=== PATIENT | female | born 1960 | race Caucasian/White ===

== ENCOUNTER 2017-09-15 18:34 | Emergency (ER) | payer SELFPAY ==
[2017-09-15] MEDS ORDERED: Sodium Chloride 0.9% 10 ML Syringe FLUSH PRN ×2 (19:05→19:36)
[2017-09-15] MEDS ORDERED: HYDROmorphone 0.5 MG/0.5 ML SYRINGE IVPUSH ONE (19:05)
[2017-09-15] MEDS ORDERED: LORazepam 2 MG/ML SDV IVPUSH ONE (19:05)
[2017-09-15] MEDS ORDERED: Iopamidol 612 MG/ML 100 ML Bottle IVPUSH ONE (19:36)
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
--- NOTE | 2017-09-17 12:26 | CT ---
CT facial bones Technique: Multiple axial sections through the facial bones were obtained. Reconstructed coronal and sagittal images were reviewed. Comparison: No previous study. Findings: Minimal mucosal thickening seen within the ethmoid sinuses and left maxillary sinus. Nasal bone fracture is seen which is slightly comminuted and mildly displaced. Fracture also noted within the anterior nasal septum. No additional facial bone fracture is seen. Impression: 1. Mildly comminuted and displaced fracture within the nasal bone. 2. Fracture within the anterior nasal septum. 3. Sinus findings which are incidental. Diagnostic code #3 I agree with preliminary report from [facility], finalized at 09/15/17, 9:20 PM Central Time
--- NOTE | 2017-09-17 12:26 | CT ---
CT chest Technique: Multiple axial sections through the chest were obtained. Intravenous contrast was utilized. Comparison: No prior chest imaging. Findings: Mediastinum and hilar regions appear within normal limits. No pericardial thickening is seen. Small portion of the visualized upper abdominal structures are within normal limits. Peripheral cysts are seen within both upper lungs. Incidental azygos lobe is seen. Lungs show no acute parenchymal densities. No pleural effusions or pneumothorax is seen. Bone window settings were reviewed which show no discrete acute rib fracture. Three old appearing left-sided rib fractures are incidentally noted. Lateral reconstruction views show minimal degenerative change within the spine without acute compression deformity. Reconstructed sagittal images of the sternum appear within normal limits. Impression: 1. Three old left-sided rib fractures. 2. Nothing acute is seen on CT study of the chest. Diagnostic code #2 I agree with preliminary report from [facility], finalized at 09/15/17, 9:16 PM Central Time
--- NOTE | 2017-09-17 12:26 | CT ---
Head CT Technique: Multiple axial sections through the brain were obtained. Intravenous contrast was not utilized. Findings: Ventricles along with basal cisterns and sulci over the convexities are within normal limits for the patient's age. No abnormal parenchymal densities are seen. No evidence of intracranial hemorrhage. No midline shift or mass effect is seen. No discrete calvarial abnormality is seen. Mucosal thickening is noted within the ethmoid sinuses. No acute calvarial abnormality is seen. Impression: 1. Mild sinus findings which are felt to be incidental. 2. No acute intracranial abnormality is identified. Diagnostic code #2 I agree with preliminary report from [facility], finalized at 09/15/17, 9:21 PM Central Time
== END 2017-09-15 20:58 | disposition home or self-care (01) ==
LOC: JD.ED 18:34
DX: S02.2XXA Fracture of nasal bones, initial encounter for closed fracture (principal); Z88.5 Allergy status to narcotic agent; Y04.8XXA Assault by other bodily force, initial encounter
CPT/HCPCS: 36415; 70450; 70486; 71260; 80053; 80306; 81003; 83690; 85025; 96374; 96375; 99284; G0480; J1170; J2060; J7050; Q9967

== ENCOUNTER 2020-03-07 04:05 | Emergency (ER) | payer SELFPAY ==
[2020-03-07] MEDS ORDERED: valACYclovir 1,000 MG Tab PO ONE (04:36)
--- NOTE | 2020-03-07 04:42 | EDM.PDOC ---
ED HPI GENERAL MEDICAL PROBLEM - General Chief Complaint: Skin Complaint Stated Complaint: right side rash on top of ear possible shingles Time Seen by Provider: 03/07/20 04:28 Source of Information: Reports: Patient History Limitations: Reports: No Limitations - History of Present Illness INITIAL COMMENTS - FREE TEXT/NARRATIVE: The patient presents with a rash to her right ear. This started a couple days ago. She has a history of shingles and she feels this is shingles again. She says this has happened in other areas when she gets stressed. Her daughter last year and this was the first [place] without her. She also has a rash in her scalp. It itches and cates. She has no fever, chills, cough, congestion, runny nose, chest pain, shortness of breath, abdominal pain, nausea or vomiting. 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: Musculoskeletal History: Reports: Other (See Below) Other Musculoskeletal History: carpal Tunnel Psychiatric History: Reports: Anxiety - Infectious Disease History Infectious Disease History: Reports: Shingles - Past Surgical History Female Surgical History: Reports: Tubal Ligation Social & Family History - Family History Family Medical History: No Pertinent Family History - Tobacco Use Tobacco Use Status *Q: Current Some Day Tobacco User Years of Tobacco use: 50 Packs/Tins Daily: 0.4 Used Tobacco, but Quit: No - Caffeine Use Caffeine Use: Reports: Coffee, Soda - Recreational Drug Use Recreational Drug Use: Yes Recreational Drug Type: Reports: Methamphetamine Recreational Drug Last Use: 5 years ago ED ROS GENERAL - Review of Systems Review Of Systems: See Below Constitutional: Reports: No Symptoms HEENT: Reports: Other (right ear pain) Respiratory: Reports: No Symptoms Cardiovascular: Reports: No Symptoms Endocrine: Reports: No Symptoms GI/Abdominal: Reports: No Symptoms : Reports: No Symptoms Musculoskeletal: Reports: No Symptoms ED EXAM, SKIN/RASH Exam: See Below Exam Limited By: No Limitations General Appearance: Alert, No Apparent Distress Ears: Other (Erythema and rash to the right ear) Nose: Normal Inspection Throat/Mouth: Normal Inspection Head: Other (rash to her scalp) Neck: Normal Inspection Respiratory/Chest: No Respiratory Distress, Lungs Clear, Normal Breath Sounds Cardiovascular: Regular Rate, Rhythm, No Edema, No Murmur GI/Abdominal: Soft, Non-Tender, No Organomegaly, No Mass Extremities: Normal Inspection Course - Vital Signs Last Recorded V/S: Last Vital Signs Temp 97.3 F 03/07/20 04:14 Pulse 93 03/07/20 04:14 Resp 18 03/07/20 04:14 BP 152/74 H 03/07/20 04:14 Pulse Ox 100 03/07/20 04:14 - Orders/Labs/Meds Orders: Active Orders 24 hr Category Date Time Status valACYclovir [Valtrex] Med 03/07/20 04:36 Once 1,000 mg PO ONETIME ONE - Re-Assessments/Exams Free Text/Narrative Re-Assessment/Exam: 03/07/20 04:41 She has shingles. I will get her a dose of valacylivor here and a prescription for more. I will also get her on some hydrocodone for pain. Departure - Departure Time of Disposition: 04:45 Disposition: Home, Self-Care 01 Condition: Good Clinical Impression: Shingles Qualifiers: Herpes zoster complications: without complications Qualified Code(s): B02.9 - Zoster without complications - Discharge Information *PRESCRIPTION DRUG MONITORING PROGRAM REVIEWED*: Not Applicable *COPY OF PRESCRIPTION DRUG MONITORING REPORT IN PATIENT MORRIS: Not Applicable Prescriptions: valACYclovir [Valtrex] 1,000 mg PO DAILY #20 tab Referrals: PCP,None [Primary Care Provider] - Additional Instructions: Take the valacyclovir 3 times per day until gone. Take tylenol or motrin as needed for pain. If that does not work, try the hydrocodone. Clean the affected area 2 times per day with warm soapy water and apply antibiotic after. Please return if you are worse. Sepsis Event Note (ED) - Evaluation Sepsis Screening Result: No Definite Risk - Focused Exam Vital Signs: Vital Signs Temp Pulse Resp BP Pulse Ox 03/07/20 04:14 97.3 F 93 18 152/74 H 100 - My Orders Last 24 Hours: My Active Orders 03/07/20 04:36 valACYclovir [Valtrex] 1,000 mg PO ONETIME ONE - Assessment/Plan Last 24 Hours: My Active Orders 03/07/20 04:36 valACYclovir [Valtrex] 1,000 mg PO ONETIME ONE
== END 2020-03-07 04:58 | disposition home or self-care (01) ==
LOC: JD.ED 04:05
DX: B02.9 Zoster without complications (principal); F17.210 Nicotine dependence, cigarettes, uncomplicated; Z88.5 Allergy status to narcotic agent
CPT/HCPCS: 99282; A9270

== ENCOUNTER 2021-09-23 22:20 | Emergency (ER) | payer MEDICAID ==
[2021-09-23] MEDS ORDERED: Acetaminophen/HYDROcodone 325-5 MG Tab PO ONE (23:37)
== END 2021-09-24 00:52 | disposition home or self-care (01) ==
LOC: JD.ED 22:20
DX: M23.92 Unspecified internal derangement of left knee (principal); F17.210 Nicotine dependence, cigarettes, uncomplicated; Z28.310 Unvaccinated for COVID-19; Z88.5 Allergy status to narcotic agent
CPT/HCPCS: 73564; 99283; A9270